=== PATIENT | male | born 1940 | race Caucasian/White ===

== ENCOUNTER → 2016-08-24 | Outpatient (CLI) | payer MEDICARE, OTHER | END | disposition home or self-care (01) | LOC: GMAH 10:37 | PROVIDERS: ATTEND Family Medicine | DX: Z12.5 Encounter for screening for malignant neoplasm of prostate (principal); E11.9 Type 2 diabetes mellitus without complications | CPT/HCPCS: 84443; 84550; G0103 ==

== ENCOUNTER → 2017-03-26 | Outpatient (CLI) | payer MEDICARE, OTHER ==
--- NOTE | 2017-03-29 08:39 | US ---
EXAM DESCRIPTION: Abdomen,Limited CLINICAL HISTORY: R/O AAA COMPARISON: None. TECHNIQUE: Ultrasound of the abdominal aorta FINDINGS: Abdominal aorta: Proximal:2.1 cm Mid: 2.2 cm Distal: 2.8 cm Common iliac arteries Right common iliac artery: 1.2 cm Left common iliac artery: 1.4 cm Free fluid: None. Other: Limited images of the abdominal organs are remarkable. IMPRESSION: 2.8 cm fusiform abdominal distal aortic aneurysm. Follow-up recommended in 5 years. Electronically signed by: Shane Bruno MD 03/29/2017 8:38 AM CDT
== END ==
LOC: US 09:30
PROVIDERS: ATTEND Family Medicine
DX: I70.0 Atherosclerosis of aorta (principal); I71.4 Abdominal aortic aneurysm, without rupture

== ENCOUNTER → 2017-08-30 | Outpatient (CLI) | payer MEDICARE, OTHER | LOC: GMAH 10:29 | PROVIDERS: ATTEND Family Medicine | DX: E78.2 Mixed hyperlipidemia (principal); E11.9 Type 2 diabetes mellitus without complications; Z12.5 Encounter for screening for malignant neoplasm of prostate | CPT/HCPCS: 84443; 84550; G0103 ==

== ENCOUNTER 2017-11-08 05:30 | Day surgery (SDC) | payer MEDICARE, OTHER ==
[2017-11-08] MEDS ORDERED: TROP 1%/CYCLOPEN 1%/PHENYL 2% DROPS ONE (06:05)
[2017-11-08] MEDS ORDERED: PROPARACAINE 0.5% OPHTH SOL 15 ML BTTL ONE (06:05)
[2017-11-08] MEDS ORDERED: TOBRAMYCIN SULF 0.3 % OPHT SOL 1 DROP RIGHT_EYE ONE ×3 (07:58→08:57)
[2017-11-08] MEDS ORDERED: MIDAZOLAM INJ 2 MG/2 ML VIAL ONE ×2 (08:08→08:20)
[2017-11-08] MEDS ORDERED: PROPARACAINE 0.5% OPHTH SOL 15 ML BTTL RIGHT_EYE ONE (08:26)
[2017-11-08] MEDS ORDERED: LIDOCAINE 1% PF 2 ML AMP INJ ONE (08:40)
[2017-11-08] MEDS ORDERED: DEXAMETHASONE 0.1% OPHTH SOL 1 DROP RIGHT_EYE ONE ×2 (08:40→08:57)
[2017-11-08] MEDS ORDERED: BRIMONIDINE 0.2% OPHTH DROPS RIGHT_EYE ONE ×2 (08:42→08:57)
[2017-11-08 10:19] VITALS: BP 115/71; TEMP 97.4; O2SAT 99
== END 2017-11-08 09:36 | disposition home or self-care (01) ==
LOC: AMB 05:30
PROVIDERS: ATTEND Ophthalmology
DX: H25.11 Age-related nuclear cataract, right eye (principal); E11.36 Type 2 diabetes mellitus with diabetic cataract; I10 Essential (primary) hypertension; J44.9 Chronic obstructive pulmonary disease, unspecified; F17.210 Nicotine dependence, cigarettes, uncomplicated; Z79.84 Long term (current) use of oral hypoglycemic drugs; Z79.899 Other long term (current) drug therapy
CPT/HCPCS: 00142; 66982; J2250

== ENCOUNTER 2017-11-22 05:20 | Day surgery (SDC) | payer MEDICARE, OTHER ==
[2017-11-22] MEDS ORDERED: PROPARACAINE 0.5% OPHTH SOL 15 ML BTTL ONE (05:50)
[2017-11-22] MEDS ORDERED: TROP 1%/CYCLOPEN 1%/PHENYL 2% DROPS ONE (05:51)
[2017-11-22] MEDS ORDERED: MIDAZOLAM INJ 2 MG/2 ML VIAL ONE (09:04)
[2017-11-22] MEDS ORDERED: PROPARACAINE 0.5% OPHTH SOL 15 ML BTTL LEFT_EYE ONE ×2 (09:08→09:26)
[2017-11-22] MEDS ORDERED: DEXAMETHASONE 0.1% OPHTH SOL 1 DROP LEFT_EYE ONE ×2 (09:15→09:34)
[2017-11-22] MEDS ORDERED: LIDOCAINE 1% PF 2 ML AMP INJ ONE (09:15)
[2017-11-22] MEDS ORDERED: TOBRAMYCIN SULF 0.3 % OPHT SOL 1 DROP LEFT_EYE ONE ×2 (09:16→09:35)
[2017-11-22] MEDS ORDERED: BRIMONIDINE 0.2% OPHTH DROPS LEFT_EYE ONE ×2 (09:16→09:35)
== END 2017-11-22 10:12 | disposition home or self-care (01) ==
LOC: AMB 05:20
PROVIDERS: ATTEND Ophthalmology
DX: H25.12 Age-related nuclear cataract, left eye (principal); I10 Essential (primary) hypertension; E11.36 Type 2 diabetes mellitus with diabetic cataract; G47.30 Sleep apnea, unspecified; Z79.84 Long term (current) use of oral hypoglycemic drugs; Z79.82 Long term (current) use of aspirin; Z79.899 Other long term (current) drug therapy
CPT/HCPCS: 00142; 66984; J2250; V2787

== ENCOUNTER → 2018-06-20 | Outpatient (CLI) | payer MEDICARE, OTHER ==
--- NOTE | 2018-06-20 10:17 | CT ---
EXAM DESCRIPTION: Chest w/o Contrast CLINICAL HISTORY: COPD COMPARISON: None available TECHNIQUE: Chest CT was performed without IV contrast. This exam was performed according to our departmental dose-optimization program, which includes automated exposure control, adjustment of the mA and/or kV according to patient size and/or use of iterative reconstruction technique. FINDINGS: Coronary artery calcifications are noted without thoracic aortic aneurysm. No mediastinal or hilar adenopathy. No esophageal wall thickening. No pleural or pericardial effusion. Bronchial secretions are noted along the posterior aspect of the right mainstem bronchus without significant luminal narrowing. Emphysematous changes are present without airspace consolidation or lung mass. There is some irregular pleural-based density posteriorly in the left upper lobe with a nodular configuration measuring up to 6 mm diameter. No additional lung nodule. Visualized portions of the upper abdomen are unremarkable noncontrast technique. No acute bone lesion. IMPRESSION: Emphysema with a 6 mm noncalcified left upper lobe nodule. Follow-up chest CT in 6-12 months with additional follow-up CT in 18-24 months is recommended to document stability. Coronary artery disease. Electronically signed by: Trey Sotelo MD 06/20/2018 10:[address] [facility]
== END ==
LOC: CT 09:30
PROVIDERS: ATTEND Family Medicine
DX: J44.9 Chronic obstructive pulmonary disease, unspecified (principal); R91.1 Solitary pulmonary nodule

== ENCOUNTER → 2018-09-20 | Outpatient (CLI) | payer MEDICARE, OTHER | LOC: GMAH 11:05 | PROVIDERS: ATTEND Family Medicine | DX: E78.2 Mixed hyperlipidemia (principal); Z12.5 Encounter for screening for malignant neoplasm of prostate | CPT/HCPCS: 84443; 84550; G0103 ==

== ENCOUNTER → 2019-06-07 | Outpatient (CLI) | payer MEDICARE, OTHER ==
--- NOTE | 2019-06-07 14:17 | CT ---
EXAM DESCRIPTION: Chest w/wo Contrast CLINICAL HISTORY: 78 years Male, CHRONIC OBSTRUCTIVE PULMONARY DISEASE COMPARISON: CT chest dated 06/20/2018. TECHNIQUE: Contiguous thin section axial images were obtained from the supraclavicular region to below the diaphragm level before and after the use of intravenous contrast. Sagittal and coronal reconstructions were reviewed. This exam was performed according to our departmental dose-optimization program, which includes automated exposure control, adjustment of the mA and/or kV according to patient size and/or use of iterative reconstruction technique. FINDINGS: The visualized thyroid gland and supraclavicular regions appear normal. No abnormally enlarged lymph nodes are identified in the mediastinum, bilateral hilar and axillary regions. Trachea is midline and the central tracheobronchial tree is patent. Severe emphysematous changes are identified throughout both lungs. Stable pleural-based 6 mm nodule in the posterior segment of the left upper lobe on image #[id number]. Minimal atelectasis is noted in the lingula. No evidence of pleural effusions. Moderate atherosclerotic disease is noted throughout the visualized aorta. Moderate coronary artery atherosclerosis. The esophagus appears normal throughout its length. A simple cyst is noted in the upper pole of the right kidney. Remainder of the visualized prevertebral and paravertebral soft tissues appear grossly unremarkable. Mild to moderate degenerative changes identified throughout the visualized spine. IMPRESSION: Severe emphysema. Stable pleural-based 6 mm nodule in the posterior segment of the left upper lobe. Follow-up CT can be performed at 18-24 months. Electronically signed by: Xavi Carmen MD 06/07/2019 2:15 PM [facility]
== END ==
LOC: CT 08:00
PROVIDERS: ATTEND Family Medicine
DX: J44.9 Chronic obstructive pulmonary disease, unspecified (principal); R91.1 Solitary pulmonary nodule

== ENCOUNTER → 2019-11-28 | Outpatient (CLI) | payer MEDICARE, OTHER | LOC: GMA MATASK 11:38 | PROVIDERS: ATTEND Family Medicine | DX: E78.2 Mixed hyperlipidemia (principal); Z12.5 Encounter for screening for malignant neoplasm of prostate | CPT/HCPCS: 84443; 84550; G0103 ==